=== PATIENT | male | born 2005 | race Caucasian/White ===

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

== ENCOUNTER 2024-04-12 18:30 | Emergency (ER) | payer OTHER ==
[2024-04-12 18:37] VITALS: RESP 18
--- NOTE | 2024-04-12 19:28 | ED ---
ENT HPI - General Chief complaint: Dental/Oral Stated complaint: Tooth pain Time Seen by Provider: 04/12/24 18:50 Source: patient, RN notes reviewed Mode of arrival: ambulatory Limitations: no limitations - History of Present Illness Initial comments: This is a 18-year-old male with no significant past medical history who presents emergency department chief complaint of dental pain. Patient states that he has been experiencing right maxillary anterior dental pain over the past week. Patient states that part of his right mandibular tooth fractured off approximately a week ago as well. States that he has been taking Tylenol and Motrin at home with minimal relief. Additionally patient states that he has developed a sore throat that started this morning. He denies fevers, cough, rhinorrhea, dyspnea. - Related Data Previous Rx's Medication Instructions Recorded Amoxicillin 500 mg PO Q8H #30 capsule 04/12/24 Ibuprofen [Motrin] 600 mg PO Q8HR PRN #30 tab 04/12/24 Allergies Allergy/AdvReac Type Severity Reaction Status Date / Time No Known Allergies Allergy Verified 04/12/24 18:37 Review of Systems ROS Statement: Those systems with pertinent positive or pertinent negative responses have been documented in the HPI. ROS Other: All systems not noted in ROS Statement are negative. Past Medical History Past Medical History: No Reported History History of Any Multi-Drug Resistant Organisms: None Reported Past Surgical History: No Surgical Hx Reported Past Psychological History: No Psychological Hx Reported Smoking Status: Never smoker Past Alcohol Use History: None Reported Past Drug Use History: None Reported General Exam Limitations: no limitations General appearance: alert, in no apparent distress Head exam: Present: atraumatic, normocephalic, normal inspection Eye exam: Present: normal appearance, PERRL, EOMI. Absent: scleral icterus, conjunctival injection, periorbital swelling Expanded Mouth exam: Present: normal external inspection Teeth exam: Present: fractured tooth # (right mandibular), dental tenderness # Throat exam: tonsillomegaly, other (poterior oropharynx erythematous with cobblestone appearance) Neck exam: Present: normal inspection, lymphadenopathy (anterior cervical). Absent: tenderness, meningismus Respiratory exam: Present: normal lung sounds bilaterally. Absent: respiratory distress, wheezes, rales, rhonchi, stridor Cardiovascular Exam: Present: regular rate, normal rhythm, normal heart sounds. Absent: systolic murmur, diastolic murmur, rubs, gallop, clicks GI/Abdominal exam: Present: soft, normal bowel sounds. Absent: distended, tenderness, guarding, rebound, rigid Extremities exam: Present: normal inspection, full ROM, normal capillary refill. Absent: tenderness, pedal edema, joint swelling, calf tenderness Back exam: Present: normal inspection Neurological exam: Present: alert, oriented X3, CN II-XII intact Psychiatric exam: Present: normal affect, normal mood Skin exam: Present: warm, dry, intact, normal color. Absent: rash Course Vital Signs 04/12/24 18:35 Temperature 98.3 F Pulse Rate 73 Respiratory 18 Rate Blood Pressure 122/71 O2 Sat by Pulse 99 Oximetry Medical Decision Making - Medical Decision Making Was pt. sent in by a medical professional or institution (NIKKIE Davis, SHAREPOINT APPLICATION ARCHITECT, urgent ca re, hospital, or alf...) When possible be specific @ -No Did you speak to anyone other than the patient for history (EMS, parent, family, police, friend...)? What history was obtained from this source @ -No Did you review nursing and triage notes (agree or disagree)? Why? @ -I reviewed and agree with nursing and triage notes Were old charts reviewed (outside hosp., previous admission, EMS record, old EKG, old radiological studies, urgent care reports/EKG's, alf records)? Report findings @ -No old charts were reviewed Differential Diagnosis (chest pain, altered mental status, abdominal pain women, abdominal pain men, vaginal bleeding, weakness, fever, dyspnea, syncope, headache, dizziness, GI bleed, back pain, seizure, CVA, palpatations, mental health, musculoskeletal)? @ -dental abscess, dental caries, dental pain, COVID 19, RSV, influenza, pneumonia, acute bronchitis, URI, this list is not all inclusive EKG interpreted by me (3pts min.). @ -None X-rays interpreted by me (1pt min.). @ -None done CT interpreted by me (1pt min.). @ -None done U/S interpreted by me (1pt. min.). @ -None done What testing was considered but not performed or refused? (CT, X-rays, U/S, labs)? Why? @ -Foot and strep were considered but deferred at this time. Patient will be discharged home with oral amoxicillin that will cover for possible strep infection therefore this testing was declined. Patient also declined testing for COVID, flu, RSV., What meds were considered but not given or refused? Why? @ -None Did you discuss the management of the patient with other professionals (professionals i.e. , PA, SHAREPOINT APPLICATION ARCHITECT, lab, RT, psych nurse, healthcare social worker, sand caster apprentice, teacher, flight deck officer, nurse outreach case manager)? Give summary @ -No Was smoking cessation discussed for >3mins.? @ -No Was critical care preformed (if so, how long)? @ -No Were there social determinants of health that impacted care today? How? (Homelessness, low income, unemployed, alcoholism, drug addiction, transportation, low edu. Level, literacy, decrease access to med. care, penitentiary, rehab)? @ -No Was there de-escalation of care discussed even if they declined (Discuss DNR or withdrawal of care, Hospice)? DNR status @ -No What co-morbidities impacted this encounter? (DM, HTN, Smoking, COPD, CAD, Cancer, CVA, ARF, Chemo, Hep., AIDS, mental health diagnosis, sleep apnea, morbid obesity)? @ -None Was patient admitted / discharged? Hospital course, mention meds given and route, prescriptions, significant lab abnormalities, going to OR and other pertinent info. @ -discharged. 18-year-old male with dental pain and sore throat. On examination patient has noted to have a dental fracture of the right mandibular tooth. Additionally he has maxillary dental tenderness. No signs of abscess. Patient's vitals are stable upon arrival. Additionally patient posterior oropharynx is erythematous with signs of cobblestoning. Patient will be discharged home with oral amoxicillin and recommend that he follows up with his dentist next week for further evaluation. He is also given a prescription for Motrin to take as needed over the next few days. All questions answered at bedside and strict return parameters discussed with the patient he is verbalized understanding. Case discussed with Dr. Adams Undiagnosed new problem with uncertain prognosis? @ -No Drug Therapy requiring intensive monitoring for toxicity (Heparin, Nitro, Insulin, Cardizem)? @ -No Were any procedures done? @ -No Diagnosis/symptom? @ -dental pain, sore throat Acute, or Chronic, or Acute on Chronic? @ -acute Uncomplicated (without systemic symptoms) or Complicated (systemic symptoms)? @ -uncomplicated Side effects of treatment? @ -No Exacerbation, Progression, or Severe Exacerbation? @ -No Poses a threat to life or bodily function? How? (Chest pain, [place], [place], pneumonia, PE, COPD, DKA, ARF, appy, cholecystitis, CVA, Diverticulitis, Homicidal, Suicidal, threat to staff... and all critical care pts) @ -No Disposition Clinical Impression: Pain, dental, Fractured tooth Disposition: HOME SELF-CARE Condition: Good Instructions (If sedation given, give patient instructions): Toothache (ED) Additional Instructions: Return to the emergency department if your symptoms worsen or not improve. Comp lete full course of antibiotics as prescribed. Take Motrin as needed for pain. Recommend that you follow-up with your dentist next week for further evaluation. Prescriptions: Amoxicillin 500 mg PO Q8H #30 capsule Ibuprofen [Motrin] 600 mg PO Q8HR PRN #30 tab PRN Reason: Pain Is patient prescribed a controlled substance at d/c from ED?: No Referrals: None,Stated [Primary Care Provider] - 1-2 days Time of Disposition: 19:28
[2024-04-12 19:47] VITALS: BP 110/67; PULSE 52; TEMP 98.7
== END 2024-04-12 19:46 | disposition home or self-care (01) ==
LOC: EC 18:30
DX: S02.5XXA Fracture of tooth (traumatic), initial encounter for closed fracture (principal); J02.9 Acute pharyngitis, unspecified; X58.XXXA Exposure to other specified factors, initial encounter
CPT/HCPCS: 99282

== ENCOUNTER → 2024-12-04 | Outpatient (CLI) | payer BC ==
--- NOTE | 2024-12-08 11:27 | CT ---
EXAMINATION TYPE: CT hand RT wo con DATE OF EXAM: 12/04/2024 6:03 PM COMPARISON: None. CLINICAL INDICATION: Male, 19 years old with history of S62.344A NONDISP FX OF BASE OF FOURTH MC BONE , RIG, right hand fx TECHNIQUE: Contrast used: mL of , (none if empty) Oral contrast used: (none if empty) Axial images at 2 mm thick sections. Reconstructed images in the coronal and sagittal planes. 3-D re constructed images were performed on a separate computer by the technologist. FINDINGS: Images are obtained through fiberglass cast. Soft tissues appear normal. There is a small avulsion from the radial aspect base of the fifth metacarpal. This is essentially no ndisplaced from the metacarpal. This has smooth margins and may be an older fracture with nonunion. There is a comminuted lucency within the base of the fourth metacarpal. This extends towards the carp al row articular surface. IMPRESSION: 1. FRACTURES AT THE BASE OF THE FOURTH AND LIKELY FIFTH METACARPALS. ALIGNMENT AND POSITIONING APPEAR S APPROPRIATE. [facility], , 12/08/2024 11:25 AM
== END | disposition home or self-care (01) ==
LOC: RADCTMAIN 16:24
PROVIDERS: ATTEND Orthopaedic Surgery
DX: S62.346A Nondisplaced fracture of base of fifth metacarpal bone, right hand, initial encounter for closed fracture (principal); S62.344A Nondisplaced fracture of base of fourth metacarpal bone, right hand, initial encounter for closed fracture; S63.054A Dislocation of other carpometacarpal joint of right hand, initial encounter; X58.XXXA Exposure to other specified factors, initial encounter